=== PATIENT | male | born 1990 | race Caucasian/White ===

== ENCOUNTER 2020-02-18 18:50 | Inpatient (IN) ==
[2020-02-18] MEDS ORDERED: PIPERACILL/TAZOBAC CONSULT ACTIVE PRN ×2 (19:07→21:10)
[2020-02-18] MEDS ORDERED: PIPERACILLIN/TAZOBACTAM 4.5 GM/120 ML BAG IV ONE (19:07)
--- NOTE | 2020-02-18 19:11 | Emergency Department Note ---
Impression & Plan Appendiceal abscess, Acute appendicitis, Leukocytosis ED Provider Note NAME: MICHI FREEDMAN AGE: 30 SEX: M : 1990 ARRIVES VIA: Walk-In INFORMANT: Patient ED PROVIDER(S): Thad Ojeda DO CHIEF COMPLAINT: Right lower quadrant pain HPI: Patient is a 30-year-old male who presents to ER for right lower quadrant abdominal pain. This started this past Saturday. IT is worse with movement. He admits to diarrhea. He also admits to nausea and vomiting on Saturday. Admits to subjective fevers. Admits to a cough which has also been present for the past week. Denies any chest pain or shortness of breath. No previous abdominal surgeries. No other exacerbating or remitting factors. He has not anything for pain at this time. ROS: See above HPI for pertinent positives & negatives. A total of 10 systems reviewed and were otherwise negative. PAST MEDICAL HISTORY:See Below PAST SURGICAL HISTORY:See Below FAMILY HISTORY:See Below SOCIAL HISTORY:See Below HOME MEDICATIONS:See Below ALLERGIES:See Below VITALS:See Below PHYSICAL EXAMINATION: GENERAL: Sitting up in bed, alert, mild distress EYE EXAM: normal conjunctiva. OROPHARYNX: no exudate, no erythema, lips, buccal mucosa, and tongue normal and mucous membranes are moist NECK: supple, no nuchal rigidity, no adenopathy, non-tender LUNGS: Clear to auscultation. Normal chest wall mechanics HEART: no murmurs, S1 normal and S2 normal ABDOMEN: abdomen soft, +TTP with rebound and guarding in the right lower quadrant BACK: Back is symmetrical on inspection and there is no deformity, no midline tenderness, no CVA tenderness. UPPER EXTREMITIES: upper extremities are grossly normal. LOWER EXTREMITIES: No pitting edema. NEURO EXAM: Normal sensorium, cranial nerves II-XII grossly intact, normal speech, no gross weakness of arms, no gross weakness of legs. MEDICAL DECISION MAKING: Patient is a 30-year-old male who presents the ER for right lower quadrant abdominal pain. His CT done as an outpatient which showed gangrenous appendix. He was referred over head CT. IV was established blood work is obtained. Labs show a mild leukocytosis of 10.8 thousand. No significant anemia. BMP was unremarkable as well as LFTs bilirubin and lipase. UA was negative. Covid was negative. Patient was discussed with Dr. Blair Jackson and Jamshid Lopez and admitted to the surgical service after reviewing the CT. He was given IV fluids and IV Zosyn. He declined pain medications. Triage Nursing notes reviewed. Prior medical records reviewed Vital Signs: reviewed and remarkable for tachy and febrile Differential diagnosis: Differential diagnoses includes but is not limited to gastritis, peptic ulcer disease, GERD, gallbladder disease, pancreatitis, small bowel obstruction, acute coronary syndrome, pericarditis, ischemic bowel, irritable bowel disease, irritable bowel syndrome, appendicitis, diverticulitis, malignancy, hernia, urinary tract infection, torsion, perforation, trauma, infectious. ER treatment provided: See below Diagnostics interpreted by me: ECG: none Cardiac Monitoring: An order was placed for continuous cardiac monitoring. The monitor shows a rate of 80 with sinus rhythm. Laboratory studies: As stated above and show below. Imaging studies: CT abdomen pelvis was reviewed as it was performed as an outpatient showed acute appendicitis with likely abscess Consultation(s): Discussed above with Dr. Blair Jackson and Jamshid Patterson ED COURSE: Procedures: none Critical Care: None Past Med/Surg History Social History Smoking Status: Former smoker Smoking End Date: 10 years ago; Second Hand Exposure: No; Do You Dip or Chew Tobacco: Yes (rarely); Tobacco Cessation Education Requested by Patient: No Hx Alcohol Use: No Hx Substance Use: No Preferred Language: [place] Communication Ability: Effective Coffee Sampler Required: No Beliefs That Will Affect Care: None Current Living Situation: Family Other Information That Helps Us Care for You: No Feels Safe at Home: Yes Safety Concerns: Feels Safe At This Time Assistive Devices: None Allergies Allergies Allergy/AdvReac Type Severity Reaction Status Date / Time No Known Allergies Allergy Unknown Verified 02/18/20 19:23 Home Meds Home Medications Medication Instructions Recorded Confirmed amoxicillin 0 mg PO BID 02/18/20 02/18/20 Results & Data (ED) Vital Signs Vital Signs - 24 hr 02/18/20 18:52 02/18/20 18:53 02/18/20 18:54 Temperature 37.7 C H Temperature Source Oral Pulse Rate 99 H 104 H 96 H Pulse Rate from SpO2 Sensor 101 H 97 H Respiratory Rate 20 23 Respiratory Effort / Characteristics Non-Labored Respiratory Depth Normal Blood Pressure 111/86 111/86 Blood Pressure Mean 97 94 Blood Pressure Position Sitting Pulse Oximetry 98 98 98 Oxygen Delivery Method Room Air Sepsis Recent Fever Within 48 Hours Yes Sepsis New/Unexplained Change in Mental Status No Sepsis Action Taken by Nursing No Action Required 02/18/20 19:00 02/18/20 19:10 02/18/20 19:20 Temperature Temperature Source Pulse Rate 101 H 88 87 Pulse Rate from SpO2 Sensor 100 H 94 H 88 Respiratory Rate 24 Respiratory Effort / Characteristics Respiratory Depth Blood Pressure Blood Pressure Mean Blood Pressure Position Pulse Oximetry 97 98 97 Oxygen Delivery Method Sepsis Recent Fever Within 48 Hours Sepsis New/Unexplained Change in Mental Status Sepsis Action Taken by Nursing 02/18/20 19:30 02/18/20 19:40 02/18/20 19:50 Temperature Temperature Source Pulse Rate 92 H 89 83 Pulse Rate from SpO2 Sensor 93 H 84 Respiratory Rate 25 H 24 Respiratory Effort / Characteristics Respiratory Depth Blood Pressure 129/71 Blood Pressure Mean 78 Blood Pressure Position Pulse Oximetry 98 100 Oxygen Delivery Method Sepsis Recent Fever Within 48 Hours Sepsis New/Unexplained Change in Mental Status Sepsis Action Taken by Nursing 02/18/20 19:51 Temperature Temperature Source Pulse Rate 85 Pulse Rate from SpO2 Sensor 89 Respiratory Rate 20 Respiratory Effort / Characteristics Respiratory Depth Blood Pressure Blood Pressure Mean Blood Pressure Position Pulse Oximetry 100 Oxygen Delivery Method Sepsis Recent Fever Within 48 Hours Sepsis New/Unexplained Change in Mental Status Sepsis Action Taken by Nursing Laboratory Data Result diagrams: 02/18/20 19:43 02/18/20 19:43 Lab Results 02/18/20 02/18/20 02/18/20 Range/Units 19:25 19:25 19:43 WBC 10.87 H (4.8-10.8) K/uL RBC 4.41 L (4.7-6.1) M/uL Hgb 13.9 L (14.0-18.0) g/dL Hct 41.0 L (42-52) % MCV 93.0 (80-100) fL MCH 31.5 (25-34) pg MCHC 33.9 (32-36) g/dL RDW Std Deviation 41.0 (36.4-46.3) fL RDW Coeff of Ro 12.1 (11.5-14.5) % Plt Count 239 (130-400) K/uL MPV 10.6 H (7.4-10.4) fL Immature Gran % (Auto) 0.2 % Neut % (Auto) 78.1 % Lymph % (Auto) 11.4 % Sierra % (Auto) 9.4 % Eos % (Auto) 0.6 % Baso % (Auto) 0.3 % Neut # (Auto) 8.50 H (1.4-6.5) K/uL Lymph # (Auto) 1.24 (1.2-3.4) K/uL Sierra # (Auto) 1.02 H (0.11-0.59) K/uL Eos # (Auto) 0.06 (0-0.5) K/uL Baso # (Auto) 0.03 (0-0.2) K/uL Immature Gran # (Auto) 0.02 (0.00-0.02) K/uL Sodium (136-145) mmol/L Potassium (3.5-5.1) mmol/L Chloride (98-107) mmol/L Carbon Dioxide (21-32) mmol/L Anion Gap (3-11) BUN (7-18) mg/dl Creatinine (0.6-1.4) mg/dl Est Cr Clr Drug Dosing ml/min Est GFR ( Amer) Est GFR (Non-Af Amer) BUN/Creatinine Ratio (10-20) Glucose (70-99) mg/dl Calcium (8.5-10.1) mg/dl Total Bilirubin (0.2-1) mg/dl AST (15-37) U/L ALT (12-78) U/L Alkaline Phosphatase (45-117) U/L Total Protein (6.4-8.2) gm/dl Albumin (3.4-5.0) gm/dl Globulin (2.5-4.0) gm/dl Albumin/Globulin Ratio (0.9-2) Lipase (73-393) U/L Urine Color Urine Appearance (Clear) Urine pH (4.5-7.5) Ur Specific [place] (1.000-1.030) Urine Protein (Negative) Urine Glucose (UA) (Negative) Urine Ketones (Negative) Urine Blood (Negative) Urine Nitrite (Negative) Urine Bilirubin (Negative) Urine Urobilinogen (Negative) Ur Leukocyte Esterase (Negative) COVID-19 Eval Order Covid19 [facility] SARS-CoV-2, RNA, NAAT NEGATIVE (NEGATIVE) 11/05/20 11/05/20 Range/Units 19:43 19:49 WBC (4.8-10.8) K/uL RBC (4.7-6.1) M/uL Hgb (14.0-18.0) g/dL Hct (42-52) % MCV (80-100) fL MCH (25-34) pg MCHC (32-36) g/dL RDW Std Deviation (36.4-46.3) fL RDW Coeff of Ro (11.5-14.5) % Plt Count (130-400) K/uL MPV (7.4-10.4) fL Immature Gran % (Auto) % Neut % (Auto) % Lymph % (Auto) % Sierra % (Auto) % Eos % (Auto) % Baso % (Auto) % Neut # (Auto) (1.4-6.5) K/uL Lymph # (Auto) (1.2-3.4) K/uL Sierra # (Auto) (0.11-0.59) K/uL Eos # (Auto) (0-0.5) K/uL Baso # (Auto) (0-0.2) K/uL Immature Gran # (Auto) (0.00-0.02) K/uL Sodium 138 (136-145) mmol/L Potassium 3.8 (3.5-5.1) mmol/L Chloride 106 (98-107) mmol/L Carbon Dioxide 30 (21-32) mmol/L Anion Gap 2.0 L (3-11) BUN 6 L (7-18) mg/dl Creatinine 0.78 (0.6-1.4) mg/dl Est Cr Clr Drug Dosing 113.9 ml/min Est GFR ( Amer) 139.4 Est GFR (Non-Af Amer) 120.3 BUN/Creatinine Ratio 8.2 L (10-20) Glucose 120 H (70-99) mg/dl Calcium 8.5 (8.5-10.1) mg/dl Total Bilirubin 0.5 (0.2-1) mg/dl AST 13 L (15-37) U/L ALT 20 (12-78) U/L Alkaline Phosphatase 98 (45-117) U/L Total Protein 7.2 (6.4-8.2) gm/dl Albumin 3.4 (3.4-5.0) gm/dl Globulin 3.8 (2.5-4.0) gm/dl Albumin/Globulin Ratio 0.9 (0.9-2) Lipase 90 (73-393) U/L Urine Color Yellow Urine Appearance Clear (Clear) Urine pH 7.5 (4.5-7.5) Ur Specific [place] 1.034 H (1.000-1.030) Urine Protein Negative (Negative) Urine Glucose (UA) Negative (Negative) Urine Ketones Negative (Negative) Urine Blood Negative (Negative) Urine Nitrite Negative (Negative) Urine Bilirubin Negative (Negative) Urine Urobilinogen Negative (Negative) Ur Leukocyte Esterase Negative (Negative) COVID-19 Eval Order SARS-CoV-2, RNA, NAAT (NEGATIVE) Administered Medications Lactated Ringer's (Lr) 1,000 mls @ 125 mls/hr IV .Q8H ALYSA Stop: 03/19/20 21:09 Last Admin: 02/18/20 21:34 Dose: 125 mls/hr Documented by: [id number] Acetaminophen (Ofirmev) 1,000 mg in 100 mls @ 400 mls/hr IV Q8H ALYSA Stop: 02/21/20 21:59 Last Infusion: 02/18/20 21:51 Dose: 0 mls/hr Documented by: [id number] Admin: 02/18/20 21:35 Dose: 400 mls/hr Documented by: [id number] Ondansetron HCl (Ondansetron Inj 2 Mg/Ml 2 Ml Vial) 4 mg IV Q6H ALYSA Stop: 03/19/20 21:59 Last Admin: 02/18/20 21:35 Dose: 4 mg Documented by: [id number] Discontinued Medications Piperacillin Sod/Tazobactam Sod (Zosyn) 4.5 gm in 120 mls @ 240 mls/hr IV NOW ONE Stop: 02/18/20 19:36 Last Infusion: 02/18/20 20:02 Dose: 0 mls/hr Documented by: [id number] Admin: 02/18/20 19:18 Dose: 240 mls/hr Documented by: [id number] Discharge Plan Visit Data Chief Complaint: Abdominal Pain Stated Complaint: AB PAIN ED Provider: Thad Ojeda Discharge Problem: Appendiceal abscess, Acute appendicitis, Leukocytosis Patient Disposition: Admitted As Inpatient Discharge Instructions Interventions: ED Discharge Assessment Last Done: 02/18/20 20:26 Discharge Problem: Acute appendicitis Qualifiers: Acute appendicitis type: with localized peritonitis Appendicitis gangrene presence: unspecified whether gangrene present Appendicitis perforation presence: unspecified whether perforation present Appendicitis abscess presence: with abscess Qualified Code(s): K35.33 - Acute appendicitis with perforation and localized peritonitis, with abscess Leukocytosis Qualifiers: Leukocytosis type: unspecified Qualified Code(s): D72.829 - Elevated white blood cell count, unspecified
[2020-02-18 19:50] LABS: Basophils # (auto) 0.03 K/uL (0-0.2); Basophils % (auto) 0.3 %; Eosinophils # (auto) 0.06 K/uL (0-0.5); Eosinophils % (auto) 0.6 %; Hemoglobin 13.9 g/dL (14.0-18.0); Immature Granulocytes # (auto) 0.02 K/uL (0.00-0.02); Immature Granulocytes % (auto) 0.2 %; Lymphocytes # (auto) 1.24 K/uL (1.2-3.4); Lymphocytes % (auto) 11.4 %; Mean Corpuscular Hemoglobin 31.5 pg (25-34); Mean Corpuscular Hgb Conc 33.9 g/dL (32-36); Mean Platelet Volume 10.6 fL (7.4-10.4); Monocytes # (auto) 1.02 K/uL (0.11-0.59); Monocytes % (auto) 9.4 %; Neutrophils % (auto) 78.1 %; Platelet Count 239 K/uL (130-400); RDW Coefficient of Variation 12.1 % (11.5-14.5); Red Blood Count 4.41 M/uL (4.7-6.1); White Blood Count 10.87 K/uL (4.8-10.8)
--- NOTE | 2020-02-18 19:56 | History & Physical Report ---
Date of Service February 18, 2020 Assessment & Plan (1) Appendiceal abscess: -due to abdominal abscess will admit and proceed in the following manner: -continue IV abx--he has received zosyn in ED -hydrate with LR @ 125 cc/hr -follow serial labs -provide analgesics and antiemetics -will allow sips of clears only -ideally would like to get infection under control prior to surgical intervention Patient likely has ruptured appendix with phlegmon and small abscess which does not appear to require eventual radiology At the present time. He is at risk for short bowel resection with the appendiceal inflammation and I feel will be better To treat this with bowel rest IV fluids and antibiotics with delayed appendectomy ideally in 4 to 6 weeks. We will keep him with limited p.o. IV fluids IV antibiotics possibly for 3 to 5 days possible repeat of his CAT scan. He still may need IR drainage depending on his progress. History of Present Illness Chief Complaint: Abdominal Pain Primary Care Provider: NO PCP 30 year old [facility] male developed RLQ abdominal pain 4 days ago. He noted he vomited the day after the pain began, but since then has been able to eat small amounts. He denies palliative factors. The pain is worse with palpation of his abdomen and does not radiate. He notes he may have had a low fever, but did not check his temperature at home. He denies diarrhea. He has had a slight cough. He denies recent weight loss and has not had diarrhea. He thought the pain would improve so he did not seek medical care at the time the pain originated. However, the pain became worse today so he presented to the ED. In the ED a CT scan of the abdomen showed concern for a RLQ inflammatory process, with possible cecal abscess or gangrenous appendix. A the time of my exam, he was in no distress Allergies Allergy/AdvReac Type Severity Reaction Status Date / Time No Known Allergies Allergy Unknown Verified 02/18/20 19:23 Home Medications Home Medications Medication Instructions Recorded Confirmed Type amoxicillin 0 mg PO BID 02/18/20 02/18/20 History Past Med/Surg History Social History Smoking Status: Never smoker Feels Safe at Home: Yes Review of Systems Constitutional: + fever (low grade); no chills and no sweats Eyes: no diplopia Ear, Nose, Mouth, Throat: no ear pain Respiratory: + cough; no dyspnea Gastrointestinal: + abdominal pain, + nausea and + vomiting; no diarrhea/loose stools Genitourinary: no dysuria Musculoskeletal: no back pain Integumentary: no rash Neurologic: no localized weakness Physical Exam Constitutional: well developed and well nourished; no acute distress Eyes: no conjunctival abnormality ENMT: Ears: no hearing impairment Neck: trachea midline Respiratory: normal respiratory effort; no respiratory distress and no labored breathing Cardiovascular: Rate/Rhythm: regular rate and regular rhythm Gastrointestinal (Abdomen): soft without distention, mild rebound tenderness and pain with palpation of the RLQ; (+) Rovsing sign noted Musculoskeletal: no calf pain Skin: no rashes, warm and dry Neurologic: moves all extremities Results & Data Results & Data ([facility]) Vital Signs (Past 12 Hours) Vital Signs Temp Pulse Resp BP Pulse Ox 02/18/20 18:53 37.7 C H 104 H 20 111/86 98 PG Care Time/CCT Total # of Minutes Spent Total Time Spent with Patient: Total time spent is greater than 50% in coordination of care (as documented) at patient's floor/unit and/or counseling patient: Coding Level of Care Code 30255 Initial Inpt Care Lvl 3 Diagnoses Appendiceal abscess K35.33
[2020-02-18 20:03] LABS: Appearance Urine Clear (Clear); Bilirubin Urine Negative (Negative); Blood Urine Negative (Negative); Color Urine Yellow; Glucose Urine UA Negative (Negative); Ketones Urine Negative (Negative); Leukocyte Esterase Urine Negative (Negative); Nitrite Urine Negative (Negative); Protein Urine Negative (Negative); Specific Gravity Urine 1.034 (1.000-1.030); Urobilinogen Urine Negative (Negative); pH Urine 7.5 (4.5-7.5)
[2020-02-18 20:08] LABS: Albumin Level 3.4 gm/dl (3.4-5.0); BUN Creatinine Ratio 8.2 (10-20); Calcium 8.5 mg/dl (8.5-10.1); Creatinine Clr Calc Pharmacy 113.9 ml/min; Est GFR (African American) 139.4; Est GFR (Non-African American) 120.3; Potassium 3.8 mmol/L (3.5-5.1)
[2020-02-18 20:11] LABS: Albumin Globulin Ratio 0.9 (0.9-2); Bilirubin,Total 0.5 mg/dl (0.2-1); Globulin 3.8 gm/dl (2.5-4.0); Total Protein 7.2 gm/dl (6.4-8.2)
[2020-02-18] MEDS ORDERED: MoRPHine SULFATE 2 MG/ML CARP IV PRN (21:10)
[2020-02-18] MEDS: LACTATED RINGER'S 1,000 ML IV SCH (21:34)
[2020-02-18] MEDS: ACETAMINOPHEN 1,000 MG/100 ML VIAL IV SCH (21:35)
[2020-02-18] MEDS: ONDANSETRON INJ 2 MG/ML 2 ML VIAL IV SCH (21:35)
[2020-02-19] MEDS: PIPERACILLIN/TAZOBACTAM 3.375 GM in DEXTROSE 5% 100 ML IV SCH ×3 (00:25→16:52)
[2020-02-19] MEDS: ONDANSETRON INJ 2 MG/ML 2 ML VIAL IV SCH ×4 (04:57→22:20)
[2020-02-19] MEDS: ACETAMINOPHEN 1,000 MG/100 ML VIAL IV SCH ×3 (05:25→21:42)
[2020-02-19] MEDS: LACTATED RINGER'S 1,000 ML IV SCH (05:25)
[2020-02-19 05:28] LABS: Basophils # (auto) 0.03 K/uL (0-0.2); Basophils % (auto) 0.3 %; Eosinophils % (auto) 0.8 %; Hematocrit (blood only) 40.4 % (42-52); Hemoglobin 13.7 g/dL (14.0-18.0); Immature Granulocytes # (auto) 0.02 K/uL (0.00-0.02); Immature Granulocytes % (auto) 0.2 %; Lymphocytes # (auto) 1.68 K/uL (1.2-3.4); Mean Corpuscular Hemoglobin 31.6 pg (25-34); Mean Corpuscular Volume 93.1 fL (80-100); Mean Platelet Volume 10.5 fL (7.4-10.4); Monocytes # (auto) 1.09 K/uL (0.11-0.59); Monocytes % (auto) 9.1 %; Neutrophils # (auto) 9.07 K/uL (1.4-6.5); Neutrophils % (auto) 75.6 %; Platelet Count 238 K/uL (130-400); RDW Coefficient of Variation 12.3 % (11.5-14.5); RDW Standard Deviation 42.3 fL (36.4-46.3); Red Blood Count 4.34 M/uL (4.7-6.1); White Blood Count 11.99 K/uL (4.8-10.8)
[2020-02-19 05:44] LABS: BUN Creatinine Ratio 6.7 (10-20); Calcium 8.3 mg/dl (8.5-10.1); Creatinine Clr Calc Pharmacy 109.2 ml/min; Est GFR (African American) 135.9; Est GFR (Non-African American) 117.2
[2020-02-19 05:52] LABS: Mean Corpuscular Hgb Conc 33.9 g/dL (32-36)
[2020-02-19] MEDS ORDERED: PROMETHAZINE HCL 12.5 MG in SODIUM CHLORIDE 0.9% 50 ML IV PRN (06:10)
[2020-02-19] MEDS ORDERED: HYDROmorphone INJ 1 MG/ML SYRINGE IV PRN (06:10)
[2020-02-19] MEDS ORDERED: PROMETHAZINE HCL 25 MG in SODIUM CHLORIDE 0.9% 50 ML IV PRN (06:10)
[2020-02-19 06:36] LABS: Albumin Globulin Ratio 0.8 (0.9-2); Bilirubin,Total 0.9 mg/dl (0.2-1); Globulin 3.9 gm/dl (2.5-4.0); Phosphorus 3.6 mg/dl (2.5-4.9); Total Protein 6.9 gm/dl (6.4-8.2)
--- NOTE | 2020-02-19 06:55 | Surgery Progress Note ---
Date of Service February 19, 2020 Assessment & Plan (1) Acute phlegmonous appendicitis: Patient admitted with what appears to be low-grade sepsis From ruptured appendix He has improved with his temperature and heart rate Good urine output Abdomen is soft With operation in this situation increased risk of complication including bowel resection We will continue with IV antibiotics likely for several days slowly advancing his diet Encourage ambulation Admission and Anticipated Discharge Date Admission Date: February 18, 2020 Subjective Patient awake and alert no distress He did have some pain during the night Voiding very well Review of Systems Review of Systems: All systems reviewed & are unremarkable except as noted in HPI & below Physical Exam Physical Exam: Awake and alert Afebrile, heart rate normal Constitutional: no acute distress Eyes: + anicteric sclerae Respiratory: no respiratory distress Cardiovascular: Rate/Rhythm: regular rate Gastrointestinal (Abdomen): Inspection/Auscultation: abdomen not distended Percussion/Palpation: + abdomen tender and abdomen soft Skin: no rashes, warm and dry Neurologic: awake Psychiatric: Orientation: alert Results & Data ([facility]) Vital Signs (Past 12 Hours) Vital Signs Temp Pulse Pulse Pulse Resp BP BP 02/18/20 23:31 36.9 C 74 14 02/18/20 21:16 37.2 C 82 20 120/73 02/18/20 20:20 90 22 02/18/20 20:10 92 H 24 02/18/20 20:01 97 H 20 02/18/20 20:00 92 H 20 119/70 02/18/20 19:51 85 20 02/18/20 19:50 83 24 129/71 02/18/20 19:40 89 25 H 02/18/20 19:30 92 H 02/18/20 19:20 87 02/18/20 19:10 88 24 02/18/20 19:00 101 H 02/18/20 18:54 96 H 23 02/18/20 18:53 37.7 C H 104 H 20 111/86 02/18/20 18:52 99 H 111/86 BP Pulse Ox 02/18/20 23:31 104/64 99 02/18/20 21:16 99 02/18/20 20:20 97 02/18/20 20:10 98 02/18/20 20:01 98 02/18/20 20:00 98 02/18/20 19:51 100 02/18/20 19:50 100 02/18/20 19:40 02/18/20 19:30 98 02/18/20 19:20 97 02/18/20 19:10 98 02/18/20 19:00 97 02/18/20 18:54 98 02/18/20 18:53 98 02/18/20 18:52 98 PG Care Time/CCT Total # of Minutes Spent Total Time Spent with Patient: Total time spent is greater than 50% in coordination of care (as documented) at patient's floor/unit and/or counseling p atient: Coding Level of Care Code 58088 Subseq Hosp Care Lvl 3 Diagnoses Acute phlegmonous appendicitis K35.890
[2020-02-19] MEDS: HYDROmorphone INJ 0.5 MG/0.5 ML SYR IV PRN ×3 (08:11→19:29)
[2020-02-19] MEDS: D5NSS + 20MEQ KCL 20 MEQ/1,000 ML BAG IV SCH ×2 (09:30→19:29)
[2020-02-19] MEDS ORDERED: COUGH DROP (SUGAR FREE) LOZ 24 LOZ/1 BOX BUCCAL ONE (14:21)
[2020-02-20] MEDS: PIPERACILLIN/TAZOBACTAM 3.375 GM in DEXTROSE 5% 100 ML IV SCH ×3 (00:25→16:12)
[2020-02-20] MEDS: HYDROmorphone INJ 0.5 MG/0.5 ML SYR IV PRN ×2 (03:30→11:29)
[2020-02-20] MEDS: ONDANSETRON INJ 2 MG/ML 2 ML VIAL IV SCH ×4 (03:31→22:17)
[2020-02-20] MEDS: D5NSS + 20MEQ KCL 20 MEQ/1,000 ML BAG IV SCH ×2 (05:22→16:07)
[2020-02-20] MEDS: ACETAMINOPHEN 1,000 MG/100 ML VIAL IV SCH ×3 (05:23→22:17)
--- NOTE | 2020-02-20 08:33 | Surgery Progress Note ---
Date of Service February 20, 2020 Assessment & Plan (1) Acute phlegmonous appendicitis: afebrile can have clears cont IV abx AM labs Admission and Anticipated Discharge Date Admission Date: February 18, 2020 Supervising Physician Co-Signing Physician Notes Patient seen and examined, agree with above. Admitted with perforated appendicitis with small abscess being treated with antibiotics. Feeling much better this morning. Slight temperature elevation yesterday afternoon. We will start clear liquids, he will likely be here through the weekend. Subjective feels better, no nausea, no fevers/chills Physical Exam Gastrointestinal (Abdomen): Percussion/Palpation: + abdomen tender (mild RLQ) and abdomen soft Results & Data ([facility]) Vital Signs (Past 12 Hours) Vital Signs Temp Pulse Resp BP BP Pulse Ox 02/20/20 07:42 36.4 C L 84 16 113/72 97 02/19/20 23:20 36.8 C 77 17 107/64 95 PG Care Time/CCT Total # of Minutes Spent Total Time Spent with Patient: Total time spent is greater than 50% in coordination of care (as documented) at patient's floor/unit and/or counseling patient: Coding Level of Care Code 60963 Subseq Hosp Care Lvl 1 Diagnoses Acute phlegmonous appendicitis K35.890
[2020-02-21] MEDS: PIPERACILLIN/TAZOBACTAM 3.375 GM in DEXTROSE 5% 100 ML IV SCH ×3 (00:32→16:57)
[2020-02-21] MEDS: D5NSS + 20MEQ KCL 20 MEQ/1,000 ML BAG IV SCH ×3 (02:27→21:55)
[2020-02-21] MEDS: ONDANSETRON INJ 2 MG/ML 2 ML VIAL IV SCH ×4 (04:37→21:55)
[2020-02-21] MEDS: HYDROmorphone INJ 0.5 MG/0.5 ML SYR IV PRN (04:37)
[2020-02-21] MEDS: ACETAMINOPHEN 1,000 MG/100 ML VIAL IV SCH ×2 (05:58→14:38)
[2020-02-21 06:53] LABS: Basophils # (auto) 0.04 K/uL (0-0.2); Basophils % (auto) 0.3 %; Eosinophils # (auto) 0.11 K/uL (0-0.5); Eosinophils % (auto) 0.9 %; Hematocrit (blood only) 38.6 % (42-52); Hemoglobin 12.9 g/dL (14.0-18.0); Immature Granulocytes # (auto) 0.02 K/uL (0.00-0.02); Immature Granulocytes % (auto) 0.2 %; Lymphocytes # (auto) 1.25 K/uL (1.2-3.4); Lymphocytes % (auto) 10.8 %; Mean Corpuscular Hemoglobin 31.9 pg (25-34); Mean Corpuscular Hgb Conc 33.4 g/dL (32-36); Mean Corpuscular Volume 95.3 fL (80-100); Mean Platelet Volume 10.4 fL (7.4-10.4); Monocytes # (auto) 1.24 K/uL (0.11-0.59); Monocytes % (auto) 10.7 %; Neutrophils # (auto) 8.95 K/uL (1.4-6.5); Neutrophils % (auto) 77.1 %; Platelet Count 272 K/uL (130-400); RDW Coefficient of Variation 12.5 % (11.5-14.5); RDW Standard Deviation 43.4 fL (36.4-46.3); Red Blood Count 4.05 M/uL (4.7-6.1); White Blood Count 11.61 K/uL (4.8-10.8)
[2020-02-21 07:21] LABS: BUN Creatinine Ratio 5.7 (10-20); Calcium 8.3 mg/dl (8.5-10.1); Creatinine Clr Calc Pharmacy 135.3 ml/min; Est GFR (African American) 148.4; Potassium 3.9 mmol/L (3.5-5.1)
--- NOTE | 2020-02-21 08:55 | Surgery Progress Note ---
Date of Service February 21, 2020 Assessment & Plan (1) Acute phlegmonous appendicitis: Patient reports daily improvement in his symptoms WBC 11.6, patient afebrile Still with some RLQ pain, but getting better. No nausea/vomiting Had some loose BM's/ flatus Continue IV abx today May advance diet to full liquids today pt seen and examined with dr. sewell Admission and Anticipated Discharge Date Admission Date: February 18, 2020 Supervising Physician Co-Signing Physician Notes Patient seen and examined, agree with above. Admitted with perforated appendicitis with small abscess being treated with antibiotics. Feeling much better this morning, tolerated clear liquids though not much of an appetite. Multiple loose bowel movements today. Tender to palpation in the right lower quadrant improving. WBC 11. Advance to full liquids, continue IV antibiotics. Subjective Patient seen sitting up in bed. Says he had multiple loose BM's and gas. Denies nausea/vomiting. Still with some RLQ pain, but says each day it's improving. Tolerated some liquids yesterday but did not have much of an appetite, today he reports feeling hungry,. Physical Exam Physical Exam: awake/alert Respiratory: normal respiratory effort Gastrointestinal (Abdomen): Inspection/Auscultation: abdomen not distended Percussion/Palpation: + abdomen tender (some ttp in RLQ) and abdomen soft Results & Data ([facility]) Vital Signs (Past 12 Hours) Vital Signs Temp Pulse Resp BP Pulse Ox 02/21/20 07:36 37.1 C 78 16 104/67 96 02/20/20 23:15 37.2 C 91 H 16 111/70 98 PG Care Time/CCT Total # of Minutes Spent Total Time Spent with Patient: Total time spent is greater than 50% in coordination of care (as documented) at patient's floor/unit and/or counseling patient: Coding Level of Care Code 80319 Subseq Hosp Care Lvl 1 Diagnoses Acute phlegmonous appendicitis K35.890
[2020-02-22] MEDS: PIPERACILLIN/TAZOBACTAM 3.375 GM in DEXTROSE 5% 100 ML IV SCH ×4 (00:09→23:12)
[2020-02-22] MEDS: HYDROmorphone INJ 0.5 MG/0.5 ML SYR IV PRN ×2 (00:09→05:02)
[2020-02-22] MEDS: ONDANSETRON INJ 2 MG/ML 2 ML VIAL IV SCH ×4 (04:43→21:18)
[2020-02-22] MEDS ORDERED: HYDROCODONE/ACETAMOPHEN 5/325MG TAB PO PRN (06:23)
--- NOTE | 2020-02-22 06:50 | Surgery Progress Note ---
Date of Service February 22, 2020 Assessment & Plan (1) Acute phlegmonous appendicitis: Advance diet to low fiber Asked dietitian to see the patient for information at home Possible discharge later today or tomorrow on oral antibiotics-Augmentin twice daily Add p.o. pain medication Plan to repeat CAT scan next week depending on progress Also seen in the office next week Admission and Anticipated Discharge Date Admission Date: February 18, 2020 Subjective Tolerating diet Positive bowel function Some right-sided abdominal pain Walking a significant amount Physical Exam Constitutional: well developed; no acute distress Eyes: + anicteric sclerae Respiratory: normal respiratory effort; no respiratory distress Cardiovascular: Rate/Rhythm: regular rate Gastrointestinal (Abdomen): Percussion/Palpation: abdomen soft Has right-sided tenderness Skin: no rashes, warm and dry Neurologic: awake Psychiatric: Orientation: alert Results & Data ([facility]) Vital Signs (Past 12 Hours) Vital Signs Temp Pulse Resp BP Pulse Ox 02/21/20 23:00 37.3 C 88 16 124/77 98 PG Care Time/CCT Total # of Minutes Spent Total Time Spent with Patient: Total time spent is greater than 50% in coordination of care (as documented) at patient's floor/unit and/or counseling patient: Coding Level of Care Code 26140 Subseq Hosp Care Lvl 3 Diagnoses Acute phlegmonous appendicitis K35.890
[2020-02-22] MEDS ORDERED: AMOXICILLIN/CLAVULANATE 875 MG TAB PO ONE (07:15)
[2020-02-22] MEDS: D5NSS + 20MEQ KCL 20 MEQ/1,000 ML BAG IV SCH (07:35)
[2020-02-22] MEDS: HYDROCODONE/ACETAMOPHEN 5/325MG TAB PO PRN ×2 (17:10→23:18)
[2020-02-23] MEDS ORDERED: AMOXICILLIN/CLAVULANATE 875MG HOME PACK PO SCH
[2020-02-23] MEDS: ONDANSETRON INJ 2 MG/ML 2 ML VIAL IV SCH ×2 (03:02→10:52)
[2020-02-23] MEDS: HYDROCODONE/ACETAMOPHEN 5/325MG TAB PO PRN ×3 (03:08→11:28)
[2020-02-23] MEDS: PIPERACILLIN/TAZOBACTAM 3.375 GM in DEXTROSE 5% 100 ML IV SCH (07:25)
[2020-02-23] MEDS ORDERED: AMOXICILLIN/CLAVULANATE 875 MG TAB PO SCH ×2 (10:15→21:00)
--- NOTE | 2020-02-23 13:37 | Discharge Summary (DS) ---
PRINCIPAL DIAGNOSIS: Appendicitis with phlegmon. HISTORY OF PRESENT ILLNESS: The patient is a 30-year-old male who presented to the Emergency Room after 4-5 days of abdominal pain noted with what appeared to be a ruptured appendix with phlegmonous changes and a small abscess. HOSPITAL COURSE: The patient was admitted to the hospital and placed on IV antibiotics and limited oral intake with bowel rest. He did progress well over the next several days and was felt stable for discharge home on 02/23/2020 to be followed in the surgical clinic within 1 week and also for repeat CAT scan. The plan is for a delayed appendectomy. The patient obviously will be maintained on oral antibiotics.
== END 2020-02-23 12:17 | disposition home or self-care (01) | DRG 373 ==
LOC: ED 18:50 → 3N 19:59